=== PATIENT | female | born 1940 | race Caucasian/White ===

== ENCOUNTER 2017-09-12 14:28 | Inpatient (IN) | payer MEDICARE, OTHER ==
[2017-09-12] MEDS ORDERED: ACETAMINOPHEN 325 MG TABLET PO PRN ×2 (14:35→15:48)
--- NOTE | 2017-09-12 14:55 | HP ---
Chief Complaint - Chief Complaint Date of Service: 09/12/17 Time of Service: 14:44 Chief Complaint: Left toe worsening infection History of Present Illness: The patient is a 77-year-old female who presented to my outpatient clinic today for routine follow-up but had acute sick visit complaints of cellulitis of her left third toe. The patient states that on 09/08/2017, she stubbed her left third toe. She states that it gradually started to become more painful, swollen and red in color. She saw deposit clerk, Dr. Gallegos, on Saturday, 2016 at which time she was diagnosed with cellulitis and started on Cefadroxil 500mg PO TID X 10 days. The patient also states that she had x-rays of her toe completed and Dr. Gallegos's office. Unfortunately, I do not have these results to review but per the patient there were no fractures. The patient has been compliant with taking all doses of her prescribed antibiotic; however, her toe continues to worsen both in appearance and symptoms. - Patient's Past Medical History Patient History - Medical: Depression, Obesity Patient History - Cardiac/Respiratory: Hyperlipidemia Patient History - Surgical Procedures: Cataracts, Colonoscopy, Orthopedic - Family History Father Family History - Medical: Family History - Cardiac/Respiratory: Coronary Heart Disease Mother Family History - Medical: Family History - Cardiac/Respiratory: CHF Sister Family History - Medical: No pertinent hx Family History - Cardiac/Respiratory: Other Family History - Cancer: No pertinent family hx - Social History Smoking Status: Never smoker Alcohol Use: none Drug Use: none Review Of Systems (GEN) - Review of Systems Generalized/Overall Review: Present: Weakness, Chills, Fatigue EENTM: Present: No Symptoms Reported Respiratory: Present: No Symptoms Reported Cardiac: Present: No Symptoms Reported Abdominal: Present: No Symptoms Reported Genitourinary: Present: No Symptoms Reported Musculoskeletal: Present: Joint Pain, Back Pain, Other - left third toe pain Neurological: Present: Weakness - generalized weakness Skin: Present: Other - left third toe swollen, red and painful Endocrine: Present: No Symptoms Reported Misc: All systems neg except as marked Allergies/Adverse Reactions: Allergies Allergy/AdvReac Type Severity Reaction Status Date / Time No Known Allergies Allergy Verified 08/06/13 18:38 Home Medications: HOME MEDICATIONS RX: ALPRAZolam [Xanax] 0.5 mg PO TID PRN 03/13/13 [Last Taken 03/13/13] RX: Carbidopa/Levodopa 25/250 [Sinemet 25/250] 1 tab PO TID 03/13/13 [Last Taken Unknown] [place]-3 Fatty Acids/Fish Oil [Fish Oil 1,000 mg Capsule] 1 each PO BID 08/06/13 [Last Taken Unknown] Acetaminophen [Tylenol] 650 mg PO Q4H PRN MDD 3000mg 09/12/17 [Last Taken Unknown] Aspirin [Aspir-Low] 81 mg PO DAILY 09/12/17 [Last Taken Unknown] Atorvastatin Calcium 20 mg PO HS 09/12/17 [Last Taken Unknown] Cefadroxil [Duricef] 500 mg PO TID 09/12/17 [Last Taken Unknown] Cholecalciferol (Vitamin D3) [Vitamin D] 2,000 unit PO DAILY 09/12/17 [Last Taken Unknown] Duloxetine HCl [Cymbalta] 90 mg PO DAILY 09/12/17 [Last Taken Unknown] RX: Gabapentin 800 mg PO TID 09/12/17 [Last Taken Unknown] RX: traMADol HCL [Tramadol HCl] 50 mg PO Q4H PRN 09/12/17 [Last Taken Unknown] Sennosides [Senna Lax] 8.6 mg PO TID PRN 09/12/17 [Last Taken Unknown] Triamcinolone Acetonide [Kenalog 0.1%] 1 appl TP BID 09/12/17 [Last Taken Unknown] Exam - Exam Vital Signs: Vital Signs - Last Taken Temp 36.9 C 08/07/13 07:33 Pulse Resp BP 137/73 08/07/13 07:33 Pulse Ox Constitutional: Present: Alert, Oriented x3, Cooperative, Acute distress - Appears uncomfortable secondary to toe pain, Elderly, Obese ENT Exam: Present: moist mucous membranes Eye Exam: bilateral eye: normal inspection, EOMI Respiratory: Present: lungs clear, normal breath sounds, no respiratory distress , no accessory muscle use Cardiovascular/Chest: Present: other - Irregular rhythm (but not irregularly irregular), murmur present Abdomen: Present: soft, nontender, nondistended Extremity: Present: no calf tenderness, lower extremity edema, other - Left third toe edema, erythema, increased warmth Skin Exam: Present: other - Left third toe edema, erythema, increased warmth Neurologic: Present: alert, normal mood/affect, oriented x 3 Appearance: Present: appropriate appearance, appropriate insight, neat, no memory impairment Eye contact: Present: cooperative, good eye contact, normal speech Thoughts: Present: normal thought pattern, no apparent hallucination Assessment/Plan - Narrative Narrative: IMPRESSION & PLAN: Left 3rd Toe Cellulitis -Admit to Med-Surg, Inpatient status. Patient failed outpatient therapy. She was started on Cefadroxil by Dr. Martinez on Saturday, . -Discontinue PO Cefadroxil -Start IV Vancomycin and Zosyn -Monitor for improvement. If patient improves well, I will plan to discontinue the IV vancomycin in the near future with plans to eventually send the patient home on oral antibiotics, likely Bactrim. -If cellulitis does not improve as expected, further imaging may be necessary -Continue to monitor clinical course and adjust care plan as necessary -Blood cultures X 2 ordered -Bloodwork ordered including CBC, BMP, procalcitonin and uric acid level CHRONIC STABLE MEDICAL CONDITIONS: Peripheral Neuropathy: Continue home medications Cymbalta, gabapentin Hyperlipidemia: Continue home medications atorvastatin, fish oil Familial Tremor: Continue home carbidopa-levodopa Depression and Anxiety: Continue home medications Xanax, Cymbalta Vitamin D deficiency: Continue home vitamin D supplementation Chronic Constipation: Continue Senna-S as needed VTE ppx: Lovenox, SCDs - Assessment/Plan (1) Cellulitis of third toe of left foot Problem: Acute (2) Peripheral neuropathy Problem: Chronic (3) Peripheral neuropathic pain Problem: Chronic (4) Hyperlipidemia Problem: Chronic (5) Benign familial tremor Problem: Chronic (6) Anxiety and depression Problem: Chronic (7) Vitamin D deficiency Problem: Chronic (8) Chronic constipation Problem: Chronic
[2017-09-12 15:08] LABS: Hematocrit 40.8 % (37.0-47.0); Hemoglobin 13.4 gm/dL (12.5-16.0); Mean Cell Volume 96.2 fl (78-100); Mean Corpuscular Hemoglobin 31.6 pg (27-31); Mean Corpuscular Hgb Conc 32.8 g/dl (32-36); Mean Platelet Volume 9.5 fl (6.0-9.5); Neutrophil # 4.7 K/mm3 (1.3-6.0); Platelet Count 206 K/mm3 (150-450); Red Blood Count 4.24 M/mm3 (4.2-5.4); Red Cell Distribution Width 12.5 % (11.5-14.0); White Blood Count 6.9 K/mm3 (4.0-10.5)
[2017-09-12 15:16] LABS: Anion Gap 10.3 mmol/L (6.8-13.8); BUN/Creatinine Ratio 21.1 (9.0-21.6); Blood Urea Nitrogen 23 mg/dL (3-23); Calcium * 9.1 mg/dL (7.9-10.9); Carbon Dioxide 34.2 mmol/L (24-32.6); Chloride 103 mmol/L (97-106); Glucose * 160 mg/dL (70-110); Potassium 4.5 mmol/L (3.4-4.6); Sodium 143 mmol/L (132-142)
[2017-09-12] MEDS: PIPERACILLIN SODIUM/TAZOBACTAM 3.375 GM in DEXTROSE 5 % IN WATER 100 ML IV SCH ×4 (16:25→23:01)
[2017-09-12] MEDS: CARBIDOPA/LEVODOPA 25/250 1 TAB TABLET PO SCH (16:47)
[2017-09-12] MEDS: ENOXAPARIN SODIUM 40 MG/0.4 ML SYRG SC SCH (16:47)
[2017-09-12] MEDS: VANCOMYCIN HCL 1.25 GM in DEXTROSE 5 % IN WATER 250 ML IV SCH ×2 (16:48)
[2017-09-12] MEDS ORDERED: FLU VACC QS2017-18(6MOS UP)/PF 60 MCG/0.5 ML SYRINGE IM ONE (17:00)
[2017-09-12] MEDS: SENNOSIDES 8.6 MG TABLET PO PRN (19:02)
[2017-09-12] MEDS: SACCHAROMYCES BOULARDII 250 MG CAPSULE PO SCH (20:32)
[2017-09-12] MEDS: GABAPENTIN 400 MG CAPSULE PO SCH (20:32)
[2017-09-12] MEDS: OMEGA-3 FATTY ACIDS 1 CAP CAPSULE PO SCH (20:32)
[2017-09-12] MEDS: ROSUVASTATIN CALCIUM 10 MG TABLET PO SCH (20:33)
[2017-09-12] MEDS: TRIAMCINOLONE ACETONIDE 15 APPL TUBE TP SCH (20:34)
[2017-09-12] MEDS: ALPRAZolam 0.5 MG TABLET PO PRN (22:56)
[2017-09-13] MEDS: traMADol HCL 50 MG TABLET PO PRN ×2 (02:23→08:35)
[2017-09-13 06:12] LABS: Hematocrit 38.1 % (37.0-47.0); Hemoglobin 12.4 gm/dL (12.5-16.0); Mean Cell Volume 96.7 fl (78-100); Mean Corpuscular Hemoglobin 31.5 pg (27-31); Mean Corpuscular Hgb Conc 32.5 g/dl (32-36); Mean Platelet Volume 9.3 fl (6.0-9.5); Neutrophil # 2.8 K/mm3 (1.3-6.0); Neutrophil % 54.5 % (42-75.0); Platelet Count 190 K/mm3 (150-450); Red Blood Count 3.94 M/mm3 (4.2-5.4); Red Cell Distribution Width 12.5 % (11.5-14.0); White Blood Count 5.1 K/mm3 (4.0-10.5)
[2017-09-13 06:18] LABS: Anion Gap 10.9 mmol/L (6.8-13.8); BUN/Creatinine Ratio 17.4 (9.0-21.6); Calcium * 8.8 mg/dL (7.9-10.9); Carbon Dioxide 31.6 mmol/L (24-32.6); Estimated Creat Clear 38.5; Potassium 4.5 mmol/L (3.4-4.6)
[2017-09-13] MEDS: GABAPENTIN 400 MG CAPSULE PO SCH ×3 (06:52→20:29)
[2017-09-13] MEDS: ALPRAZolam 0.5 MG TABLET PO PRN ×3 (08:35→20:44)
[2017-09-13] MEDS: ASPIRIN 81 MG TABLET.DR PO SCH (08:37)
[2017-09-13] MEDS: PIPERACILLIN SODIUM/TAZOBACTAM 3.375 GM in DEXTROSE 5 % IN WATER 100 ML IV SCH ×4 (08:37→16:28)
[2017-09-13] MEDS: DULoxetine HCL 30 MG CAPSULE.SA PO SCH (08:37)
[2017-09-13] MEDS: TRIAMCINOLONE ACETONIDE 15 APPL TUBE TP SCH ×2 (08:38→20:29)
[2017-09-13] MEDS: SACCHAROMYCES BOULARDII 250 MG CAPSULE PO SCH ×2 (08:38→20:29)
[2017-09-13] MEDS: CHOLECALCIFEROL 1,000 UNIT CAPSULE PO SCH (08:39)
[2017-09-13] MEDS: CARBIDOPA/LEVODOPA 25/250 1 TAB TABLET PO SCH ×3 (08:39→16:28)
[2017-09-13] MEDS: OMEGA-3 FATTY ACIDS 1 CAP CAPSULE PO SCH ×3 (08:39→20:39)
--- NOTE | 2017-09-13 09:12 | PN ---
Subjective - Date and Time Seen Date: 09/13/17 Time: 09:00 Objective Objective Narrative: Patient seen and examined at bedside this AM. No acute issues overnight. Swelling and redness still present but improved from yesterday. Patient denies any new issues or concerns this AM. - Review of Systems Generalized/Overall Review: Reports: Weakness, Fatigue EENTM: Reports: No Symptoms Reported Respiratory: Reports: No Symptoms Reported Cardiac: Reports: No Symptoms Reported Abdominal: Reports: No Symptoms Reported Genitourinary Symptoms: Reports: No Symptoms Reported Musculoskeletal Complaints: Reports: Joint Pain, Back Pain, Other - left 3rd toe pain Neurological: Reports: Weakness - generalized Skin: Reports: Other - left third toe swelling and redness Endocrine: Reports: No Symptoms Reported Misc: All systems neg except as marked - Vitals Vitals: Last Vital Signs Temp 36.4 C L 09/13/17 08:15 Pulse 92 09/13/17 08:15 Resp 16 09/13/17 08:15 BP 159/84 09/13/17 08:15 Pulse Ox 97 09/13/17 08:15 - Abnormal Lab Findings Abnormal Lab Findings: Abnormal Lab Results 09/12/17 09/12/17 09/12/17 Range/Units 14:50 14:50 14:50 RBC (4.2-5.4) M/mm3 Hgb (12.5-16.0) gm/dL MCH 31.6 H (27-31) pg Eosinophils % (0.0-3.0) % Sodium 143 H (132-142) mmol/L Plasma Sodium 144 H (130-142) mmol/L Carbon Dioxide 34.2 H (24-32.6) mmol/L Est GFR (Non-Af Amer) 52 L (60-130) mL/min Random Glucose 160 H (70-110) mg/dL Procalcitonin Less than 0.05 L (0.05-0.50) ng/mL 09/13/17 09/13/17 Range/Units 06:05 06:05 RBC 3.94 L (4.2-5.4) M/mm3 Hgb 12.4 L (12.5-16.0) gm/dL MCH 31.5 H (27-31) pg Eosinophils % 4.1 H (0.0-3.0) % Sodium 143 H (132-142) mmol/L Plasma Sodium 143 H (130-142) mmol/L Carbon Dioxide (24-32.6) mmol/L Est GFR (Non-Af Amer) 52 L (60-130) mL/min Random Glucose (70-110) mg/dL Procalcitonin (0.05-0.50) ng/mL - Exam Constitutional: Present: Alert, Oriented x3, Cooperative, Well developed, Well nourished, No distress, Obese ENT Exam: Present: hearing grossly normal, moist mucous membranes Respiratory: Present: lungs clear, normal breath sounds, no respiratory distress , no accessory muscle use Cardiovascular/Chest: Present: other - Irregular rhythm (but not irregularly irregular), murmur present, edema - trace Abdomen: Present: soft, nontender, nondistended Extremity: Present: other - Left third toe edema, erythema, increased warmth. Area of redness from admission outlined and shows improved/diminished area of erythema. Skin Exam: Present: other - Left third toe edema, erythema, increased warmth. Area of redness from admission outlined and shows improved/diminished area of erythema. Neurologic: Present: alert, normal mood/affect, oriented x 3 Appearance: Present: appropriate appearance, appropriate insight, neat, no memory impairment Eye contact: Present: cooperative, good eye contact, normal speech Thoughts: Present: normal thought pattern, no apparent hallucination Assessment/Plan Plan Narrative: IMPRESSION & PLAN: Left 3rd Toe Cellulitis -Admit to Med-Surg, Inpatient status. Patient failed outpatient therapy. She was started on Cefadroxil by Dr. Martinez on Saturday, . Per patient, despite oral antibiotics the redness, swelling and pain continued to progressively get worse. -Cefadroxil discontinued on admission -Continue IV Vancomycin and Zosyn -Monitor for improvement. If patient improves well, I will plan to discontinue the IV vancomycin in the near future with plans to eventually send the patient home on oral antibiotics, likely Bactrim. -MRI ordered for further evaluation of possible osteomyelitis -Continue to monitor clinical course and adjust care plan as necessary -Blood cultures X 2 ordered on admission CHRONIC STABLE MEDICAL CONDITIONS: Peripheral Neuropathy: Continue home medications Cymbalta, gabapentin Hyperlipidemia: Continue home medications atorvastatin, fish oil Familial Tremor: Continue home carbidopa-levodopa Depression and Anxiety: Continue home medications Xanax, Cymbalta Vitamin D deficiency: Continue home vitamin D supplementation Chronic Constipation: Continue Senna-S as needed VTE ppx: Lovedarronx, SCDs Disposition: Await results of MRI. It is quite likely that the patient will remain in the hospital on IV antibiotics through the weekend. - Problems/Diagnosis (1) Cellulitis of third toe of left foot Problem: Acute (2) Peripheral neuropathy Problem: Chronic (3) Peripheral neuropathic pain Problem: Chronic (4) Hyperlipidemia Problem: Chronic (5) Benign familial tremor Problem: Chronic (6) Anxiety and depression Problem: Chronic (7) Vitamin D deficiency Problem: Chronic (8) Chronic constipation Problem: Chronic
--- NOTE | 2017-09-13 15:39 | CONS ---
- Reason for consultation (1) Cellulitis of third toe of left foot Date of Service: 09/13/17 HPI - General Date of Service: 09/13/17 Narrative: Pt evaluated at bedside resting. States that she has been having ongoing troubles with her left 3rd toe for some time now. States that Dr. Gallegos did try to aspirate a mass to the plantar surface of her toe approximately 1 month ago without success. She then stubbed this toe on Saturday and presented back to his office for follow up. Xrays were completed and she was told negative for fracture. She was placed on oral ABX with diagnosis of cellulitis of the toe. She then presented to her PCP yesterday for follow up care and worsening of the redness and swelling in her toe, now extending to the dorsum of the foot. She was admitted for IV ABX therapy. Repeat xray shows fracture of the distal phalanx of the 3rd toe, MRI with some concern for osteomyelitis. Pt denies any draining sores to this toe. Uric acid level was obtained, high end of normal. I was consulted for surgical evaluation. Source: patient Exam Limitations: no limitations - History of Present Illness Allergies/Adverse Reactions: Allergies No Known Allergies Allergy (Verified 08/06/13 18:38) Home Medications: Home Medications Medication Instructions Recorded Last Taken ALPRAZolam [Xanax] 0.5 mg PO TID PRN 03/13/13 03/13/13 Carbidopa/Levodopa 25/250 [Sinemet 1 tab PO TID 03/13/13 Unknown 25/250] [place]-3 Fatty Acids/Fish Oil [Fish 1 each PO BID 08/06/13 Unknown Oil 1,000 mg Capsule] Acetaminophen [Tylenol] 650 mg PO Q4H PRN MDD 3000mg 09/12/17 Unknown Aspirin [Aspir-Low] 81 mg PO DAILY 09/12/17 Unknown Atorvastatin Calcium 20 mg PO HS 09/12/17 Unknown Cefadroxil [Duricef] 500 mg PO TID 09/12/17 Unknown Cholecalciferol (Vitamin D3) 2,000 unit PO DAILY 09/12/17 Unknown [Vitamin D] Duloxetine HCl [Cymbalta] 90 mg PO DAILY 09/12/17 Unknown Gabapentin 800 mg PO TID 09/12/17 Unknown Sennosides [Senna Lax] 8.6 mg PO TID PRN 09/12/17 Unknown Triamcinolone Acetonide [Kenalog 1 appl TP BID 09/12/17 Unknown 0.1%] traMADol HCL [Tramadol HCl] 50 mg PO Q4H PRN 09/12/17 Unknown - Patient's Past Medical History Patient History - Medical: Depression, Obesity Patient History - Cardiac/Respiratory: Hyperlipidemia Patient History - Cancer: No Hx of Cancer Patient History - Surgical Procedures: Cataracts, Colonoscopy, Orthopedic Patient History - Other: None - Family History Father Family History - Medical: Family History - Cardiac/Respiratory: Coronary Heart Disease Mother Family History - Medical: Family History - Cardiac/Respiratory: CHF Sister Family History - Medical: No pertinent hx Family History - Cardiac/Respiratory: Other Family History - Cancer: No pertinent family hx - Social History Living Situations: spouse Abuse History: No History of abuse Psych History: Hx of Anxiety, Hx of Depression, Current tx/ever been on anti- depressants or anti-anxiety meds Smoking Status: Never smoker Have you smoked in the past 12 months: No Patient requests Smoking Cessation Consult: No Initiate information on Smoking Cessation: No Alcohol Use: none Drug Use: none Procedures AFTER-CATAR DISCISSION (02/20/11) CATARAC PHACOEMULS/ASPIR (08/24/08) COLONOSCOPY (07/12/09) EXCIS KNEE SEMILUN CARTL (03/27/13) INSERT LENS AT CATAR EXT (08/24/08) KNEE ARTHROSCOPY (03/27/13) KNEE SYNOVECTOMY (03/27/13) SPINAL TAP (04/21/09) Medications - Medications Current Medications: Current Medications Acetaminophen (Tylenol) 650 mg PO Q4H PRN PRN Reason: Pain Stop: 10/12/17 15:49 Last Admin: 09/12/17 20:28 Dose: 650 mg Alprazolam (Xanax) 0.5 mg PO TID PRN PRN Reason: Anxiety Stop: 10/12/17 15:49 Last Admin: 09/13/17 08:35 Dose: 0.5 mg Aspirin (Aspirin Enteric Coated) 81 mg PO DAILY LYNETTE Stop: 10/13/17 09:01 Last Admin: 09/13/17 08:37 Dose: 81 mg Carbidopa/Levodopa (Sinemet 25/250) 1 tab PO TID LYNETTE Stop: 10/12/17 17:01 Last Admin: 09/13/17 13:38 Dose: 1 tab Cholecalciferol (Vitamin D) 2,000 unit PO DAILY LYNETTE Stop: 10/13/17 09:01 Last Admin: 09/13/17 08:39 Dose: 2,000 unit Duloxetine HCl (Cymbalta) 90 mg PO DAILY LYNETTE Stop: 10/13/17 09:01 Last Admin: 09/13/17 08:37 Dose: 90 mg Enoxaparin Sodium (Lovenox) 40 mg SC Q24H LYNETTE Stop: 10/12/17 17:01 Last Admin: 09/12/17 16:47 Dose: 40 mg Gabapentin (Neurontin) 800 mg PO TID@0700,1400,2100 LYNETTE Stop: 10/12/17 21:01 Last Admin: 09/13/17 13:38 Dose: 800 mg Piperacillin Sod/Tazobactam (Sod 3.375 gm/ Dextrose/Water) 100 mls @ 25 mls/hr IV Q8H LYNETTE PRN Reason: Protocol Stop: 10/12/17 16:01 Last Admin: 09/13/17 08:37 Dose: 25 mls/hr Vancomycin HCl 1.25 gm/ (Dextrose/Water) 250 mls @ 140 mls/hr IV Q24H LYNETTE PRN Reason: Protocol Stop: 10/12/17 17:01 Last Admin: 09/12/17 16:48 Dose: 140 mls/hr Pjcpo-1-Chld Ethyl Esters ([place]-3 1000 Mg) 1 cap PO BID LYNETTE Stop: 10/12/17 21:01 Last Admin: 09/13/17 08:39 Dose: 1 cap Rosuvastatin Calcium (Crestor) 10 mg PO HS LYNETTE Stop: 10/12/17 21:01 Last Admin: 09/12/17 20:33 Dose: 10 mg Saccharomyces Boulardii (Florastor) 250 mg PO BID LYNETTE Stop: 10/12/17 21:01 Last Admin: 09/13/17 08:38 Dose: 250 mg Senna (Senokot) 8.6 mg PO TID PRN PRN Reason: Constipation Stop: 10/12/17 15:49 Last Admin: 09/12/17 19:02 Dose: 8.6 mg Tramadol HCl (Ultram) 50 mg PO Q4H PRN PRN Reason: Pain Stop: 10/12/17 15:49 Last Admin: 09/13/17 08:35 Dose: 50 mg Triamcinolone Acetonide (Kenalog 0.1%) 1 appl TP BID LYNETTE Stop: 10/12/17 21:01 Last Admin: 09/13/17 08:38 Dose: 1 appl Review of Systems - Review of Systems Musculoskeletal: Present: Other - left 3rd toe pain Skin: Present: Other - redness and swelling left 3rd toe Physical Examination - Exam Vital Signs: Vital Signs - Last Taken Temp 36.4 C L 09/13/17 09:00 Pulse 92 09/13/17 09:00 Resp 16 09/13/17 09:00 BP 159/84 09/13/17 09:00 Pulse Ox 97 09/13/17 09:00 O2 Oxygen Delivery Method Room Air Constitutional: Present: Alert, Oriented x3, Cooperative, No distress Peripheral Pulses: dorsalis-pedis (L): 2+ Extremity: Present: other - left 3rd toe pain Skin Exam: Present: other - Erythema to left 3rd toe extending to the base of the toe - improved per previous demarcation of level of erythema. Toe is significantly swollen and warm to touch. Pt has some tenderness on palpation to the toe. White discoloration among erythema at the plantar medial toe and dorsal PIPJ region of the toe, consider tophi from gout attack. No breaks in the skin, no active drainage. - Results and Findings: Lab/Microbiology results last 24 hrs: Abnormal/Pending Laboratory Last 24 HRS 09/13/17 09/13/17 09/12/17 06:05 06:05 14:50 RBC 3.94 L Hgb 12.4 L MCH 31.5 H Eosinophils % 4.1 H Sodium 143 H Plasma Sodium 143 H Est GFR (Non-Af Amer) 52 L Procalcitonin Less than 0.05 L Culture 09/12/17 14:50 Blood Culture - Preliminary Blood NO GROWTH 24 HOURS - Assessments/Findings (1) Cellulitis of third toe of left foot Diagnosis(s): Reviewed labs, xray, MRI. I am not completely convinced pt has osteomyelitis as she has no ulcerations in her skin. MRI findings could be secondary to acute fracture of the toe following stubbing injury 5 days ago. Uric acid is high end of normal. I am more suspicious of an acute gout attack at this time. Would like to continue IV ABX through the weekend and re-evaluate. Discussed with pt potential I&D of the toe and can remove the fracture fragments and send to be evaluated for infection as bone culture is the gold standard in diagnosing. I do not believe pt requires amputation of any kind at this time. Pt is in agreement with this plan. Will continue to follow during her stay and plan surgical care accordingly. Problem: Acute
[2017-09-13] MEDS: ENOXAPARIN SODIUM 40 MG/0.4 ML SYRG SC SCH (16:28)
[2017-09-13] MEDS: VANCOMYCIN HCL 1.25 GM in DEXTROSE 5 % IN WATER 250 ML IV SCH ×2 (16:38)
[2017-09-13] MEDS: ROSUVASTATIN CALCIUM 10 MG TABLET PO SCH (20:29)
[2017-09-13] MEDS: SENNOSIDES 8.6 MG TABLET PO PRN (20:44)
[2017-09-13] MEDS ORDERED: POLYVINYL ALCOHOL 150 DROP BTL EACHEYE PRN (20:58)
[2017-09-14] MEDS: PIPERACILLIN SODIUM/TAZOBACTAM 3.375 GM in DEXTROSE 5 % IN WATER 100 ML IV SCH ×8 (00:13→23:49)
[2017-09-14] MEDS: GABAPENTIN 400 MG CAPSULE PO SCH ×3 (07:05→21:00)
[2017-09-14] MEDS: ALPRAZolam 0.5 MG TABLET PO PRN ×2 (07:08→22:17)
[2017-09-14] MEDS: SENNOSIDES/DOCUSATE SODIUM 1 TAB TABLET PO PRN ×2 (08:38→13:33)
[2017-09-14] MEDS: ASPIRIN 81 MG TABLET.DR PO SCH (08:39)
[2017-09-14] MEDS: CARBIDOPA/LEVODOPA 25/250 1 TAB TABLET PO SCH ×3 (08:39→16:49)
[2017-09-14] MEDS: DULoxetine HCL 30 MG CAPSULE.SA PO SCH (08:39)
[2017-09-14] MEDS: OMEGA-3 FATTY ACIDS 1 CAP CAPSULE PO SCH ×2 (08:39→21:01)
[2017-09-14] MEDS: SACCHAROMYCES BOULARDII 250 MG CAPSULE PO SCH ×2 (08:39→21:01)
[2017-09-14] MEDS: CHOLECALCIFEROL 1,000 UNIT CAPSULE PO SCH (08:39)
[2017-09-14] MEDS: TRIAMCINOLONE ACETONIDE 15 APPL TUBE TP SCH ×2 (08:40→21:02)
--- NOTE | 2017-09-14 09:27 | PN ---
Subjective - Date and Time Seen Date: 09/14/17 Time: 08:40 Subjective Narrative: Patient seen and examined at bedside this AM. No acute issues overnight. Swelling and redness still present but continues to improve. Patient denies any new issues or concerns this AM. Objective Objective Narrative: Patient seen and examined at bedside this AM. No acute issues overnight. Swelling and redness still present but improved from yesterday. Patient denies any new issues or concerns this AM. - Review of Systems Generalized/Overall Review: Reports: Weakness, Fatigue EENTM: Reports: No Symptoms Reported Respiratory: Reports: No Symptoms Reported Cardiac: Reports: No Symptoms Reported Abdominal: Reports: No Symptoms Reported Genitourinary Symptoms: Reports: No Symptoms Reported Musculoskeletal Complaints: Reports: Joint Pain, Back Pain, Other - Left 3rd toe pain improving Neurological: Reports: Weakness - generalized weakness Skin: Reports: Other - Left 3rd toe swelling and redness Endocrine: Reports: No Symptoms Reported Misc: All systems neg except as marked - Vitals Vitals: Last Vital Signs Temp 36.7 C 09/14/17 06:48 Pulse 82 09/14/17 06:48 Resp 18 09/14/17 06:48 BP 186/77 09/14/17 06:48 Pulse Ox 96 09/14/17 06:48 - Exam Constitutional: Present: Alert, Oriented x3, Cooperative, Well developed, Well nourished, No distress, Elderly, Obese ENT Exam: Present: hearing grossly normal, moist mucous membranes Respiratory: Present: lungs clear, normal breath sounds, no respiratory distress , no accessory muscle use Cardiovascular/Chest: Present: other - Irregular rhythm (but not irregularly irregular), regular rate, edema - trace edema in bilateral lower extremities Abdomen: Present: soft, nontender, nondistended Extremity: Present: other - Left third toe edema, erythema, increased warmth. Area or redness outlined on admission and shows improved/diminished area of erythema. Skin Exam: Present: other - Left third toe edema, erythema, increased warmth. Area or redness outlined on admission and shows improved/diminished area of erythema. Neurologic: Present: alert, normal mood/affect, oriented x 3 Appearance: Present: appropriate appearance, appropriate insight, neat, no memory impairment Eye contact: Present: cooperative, good eye contact, normal speech Thoughts: Present: normal thought pattern, no apparent hallucination Assessment/Plan Plan Narrative: IMPRESSION & PLAN: Left 3rd Toe Cellulitis -Admit to Med-Surg, Inpatient status. Patient failed outpatient therapy. She was started on Cefadroxil by Dr. Martinez on Saturday, . Per patient, despite oral antibiotics the redness, swelling and pain continued to progressively get worse. -Cefadroxil discontinued on admission -Continue IV Vancomycin and Zosyn -Patient had an x-ray taken in Dr. Gallegos's office on 09/09/2017 and per patient and Dr. Gallegos, there were no acute fractures. Unfortunately, I do not have these images or report for review. Thus, I repeated x-rays on 2016 which showed: Diffuse soft tissue swelling involving the third toe, dorsal displacement of Bone fragments which are anterior to the proximal aspect of the distal phalanx. This may reflect a displaced fracture, but bony destruction/ osteomalacia cannot be totally excluded. -Left lower extremity non-joint MRI with and without contrast on 09/13/2017 showed: Dorsally displaced bone fragment, which I believe originates from the proximal medial aspect of the distal phalanx of the third toe. There is abnormal signal within the distal phalanx and middle phalanx of the third toe, concerning for osteomyelitis. -Blood cultures X 2 ordered on admission preliminary NGTD -[employer], Dr. Ordoñez, consulted. Appreciate her input and assistance in the care of this patient. Plan is to continue IV antibiotics through the weekend and reassess on Saturday to determine if the patient needs an I&D and/or removal of bone fragments to send for culture to rule out osteomyelitis. Possible Gout -Patient denies ever having a history of gout in the past. However, exam is concerning for a possible acute gout flare with visible tophi under the skin. -Uric acid on admission 7.0. However, in an acute gout flare it is quite common to have a normal uric acid level. -Continue above treatment plan but I will also start the patient on treatment for gout with colchicine 0.6mg PO BID CHRONIC STABLE MEDICAL CONDITIONS: Peripheral Neuropathy: Continue home medications Cymbalta, gabapentin Hyperlipidemia: Continue home medications atorvastatin, fish oil Familial Tremor: Continue home carbidopa-levodopa Depression and Anxiety: Continue home medications Xanax, Cymbalta Vitamin D deficiency: Continue home vitamin D supplementation Chronic Constipation: Continue Senna-S as needed VTE ppx: Lovenox, SCDs Disposition: Continue IV antibiotics through the weekend with plans for I&D and possible removal of the fracture fragments by Dr. Ordoñez on Saturday. - Problems/Diagnosis (1) Cellulitis of third toe of left foot Problem: Acute (2) Acute gout involving toe of left foot Problem: Suspected (3) Peripheral neuropathy Problem: Chronic (4) Peripheral neuropathic pain Problem: Chronic (5) Hyperlipidemia Problem: Chronic (6) Benign familial tremor Problem: Chronic (7) Anxiety and depression Problem: Chronic (8) Vitamin D deficiency Problem: Chronic (9) Chronic constipation Problem: Chronic
[2017-09-14] MEDS: COLCHICINE 0.6 MG TABLET PO SCH ×3 (10:22→16:48)
[2017-09-14] MEDS ORDERED: BISACODYL 10 MG SUPP.RECT RC PRN (14:33)
[2017-09-14] MEDS: ENOXAPARIN SODIUM 40 MG/0.4 ML SYRG SC SCH (16:49)
[2017-09-14] MEDS: VANCOMYCIN HCL 1.25 GM in DEXTROSE 5 % IN WATER 250 ML IV SCH ×2 (16:49)
[2017-09-14] MEDS: traMADol HCL 50 MG TABLET PO PRN ×2 (16:52→22:01)
[2017-09-14] MEDS: ROSUVASTATIN CALCIUM 10 MG TABLET PO SCH (21:02)
[2017-09-15 06:08] LABS: Hematocrit 37.3 % (37.0-47.0); Mean Cell Volume 96.9 fl (78-100); Mean Corpuscular Hemoglobin 31.2 pg (27-31); Mean Corpuscular Hgb Conc 32.2 g/dl (32-36); Mean Platelet Volume 9.9 fl (6.0-9.5); Neutrophil # 2.9 K/mm3 (1.3-6.0); Neutrophil % 56.4 % (42-75.0); Platelet Count 170 K/mm3 (150-450); Red Blood Count 3.85 M/mm3 (4.2-5.4); Red Cell Distribution Width 12.6 % (11.5-14.0); White Blood Count 5.1 K/mm3 (4.0-10.5)
[2017-09-15 06:15] LABS: Anion Gap 10.1 mmol/L (6.8-13.8); BUN/Creatinine Ratio 17.7 (9.0-21.6); Calcium * 8.9 mg/dL (7.9-10.9); Carbon Dioxide 31.3 mmol/L (24-32.6); Estimated Creat Clear 37.1; Potassium 4.4 mmol/L (3.4-4.6)
[2017-09-15] MEDS: PIPERACILLIN SODIUM/TAZOBACTAM 3.375 GM in DEXTROSE 5 % IN WATER 100 ML IV SCH ×6 (07:31→23:42)
[2017-09-15] MEDS: GABAPENTIN 400 MG CAPSULE PO SCH ×3 (07:32→21:20)
[2017-09-15] MEDS: DULoxetine HCL 30 MG CAPSULE.SA PO SCH (08:06)
[2017-09-15] MEDS: OMEGA-3 FATTY ACIDS 1 CAP CAPSULE PO SCH ×2 (08:06→21:21)
[2017-09-15] MEDS: COLCHICINE 0.6 MG TABLET PO SCH (08:06)
[2017-09-15] MEDS: SACCHAROMYCES BOULARDII 250 MG CAPSULE PO SCH ×2 (08:06→21:19)
[2017-09-15] MEDS: CARBIDOPA/LEVODOPA 25/250 1 TAB TABLET PO SCH ×3 (08:06→16:44)
[2017-09-15] MEDS: CHOLECALCIFEROL 1,000 UNIT CAPSULE PO SCH (08:07)
[2017-09-15] MEDS: ASPIRIN 81 MG TABLET.DR PO SCH (08:07)
[2017-09-15] MEDS: POLYETHYLENE GLYCOL 3350 119 GM BTL PO SCH (08:07)
[2017-09-15] MEDS: TRIAMCINOLONE ACETONIDE 15 APPL TUBE TP SCH ×2 (08:08→21:20)
[2017-09-15] MEDS: ALPRAZolam 0.5 MG TABLET PO PRN ×2 (08:10→16:44)
--- NOTE | 2017-09-15 10:17 | PN ---
Subjective - Date and Time Seen Date: 09/15/17 Time: 10:08 Subjective Narrative: Patient seen and examined at bedside this AM. No acute issues overnight. Swelling and redness still present and appears about the same as yesterday. Patient states she has some right ear pain. Objective - Review of Systems Generalized/Overall Review: Reports: Weakness - generalized, Fatigue EENTM: Reports: Ear Pain - right Respiratory: Reports: No Symptoms Reported Cardiac: Reports: No Symptoms Reported Abdominal: Reports: No Symptoms Reported Genitourinary Symptoms: Reports: No Symptoms Reported Musculoskeletal Complaints: Reports: Joint Pain, Back Pain, Other - left 3rd toe pain which is improving and well controlled at the time of my exam Neurological: Reports: Weakness - generalized Skin: Reports: Other - left 3rd toe swelling and redness Endocrine: Reports: No Symptoms Reported Misc: All systems neg except as marked - Vitals Vitals: Last Vital Signs Temp 36.9 C 09/15/17 07:57 Pulse 83 09/15/17 07:57 Resp 18 09/15/17 07:57 BP 156/87 09/15/17 07:57 Pulse Ox 97 09/15/17 07:57 - Abnormal Lab Findings Abnormal Lab Findings: Abnormal Lab Results 09/15/17 09/15/17 Range/Units 05:30 05:30 RBC 3.85 L (4.2-5.4) M/mm3 Hgb 12.0 L (12.5-16.0) gm/dL MCH 31.2 H (27-31) pg MPV 9.9 H (6.0-9.5) fl Monocytes % 10.5 H (0.0-9) % Eosinophils % 4.7 H (0.0-3.0) % Lymphocytes # 1.4 L (1.5-3.5) k/mm3 Est GFR (Non-Af Amer) 50 L (60-130) mL/min - Exam Constitutional: Present: Alert, Oriented x3, Cooperative, Well developed, Well nourished, No distress, Elderly, Obese ENT Exam: Present: hearing grossly normal, moist mucous membranes, other - right ear canal with scab/dried blood but otherwise normal appearance Respiratory: Present: lungs clear, normal breath sounds, no respiratory distress , no accessory muscle use Cardiovascular/Chest: Present: other - Irregular rhythm, normal rate, edema - trace Abdomen: Present: soft, nontender, nondistended Extremity: Present: other - Left third toe edema, erythema, increased warmth stable from yesterday Skin Exam: Present: other - Left third toe edema, erythema, increased warmth stable from yesterday Neurologic: Present: alert, normal mood/affect, oriented x 3 Appearance: Present: appropriate appearance, appropriate insight, neat, no memory impairment Eye contact: Present: cooperative, good eye contact, normal speech Thoughts: Present: normal thought pattern, no apparent hallucination Assessment/Plan Plan Narrative: IMPRESSION & PLAN: Left 3rd Toe Cellulitis -Admit to Med-Surg, Inpatient status. Patient failed outpatient therapy. She was started on Cefadroxil by Dr. Martinez on Saturday, . Per patient, despite oral antibiotics the redness, swelling and pain continued to progressively get worse. -Cefadroxil discontinued on admission -Continue IV Vancomycin and Zosyn -Patient had an x-ray taken in Dr. Gallegos's office on 09/09/2017 and per patient and Dr. Gallegos, there were no acute fractures. Unfortunately, I do not have these images or report for review. Thus, I repeated x-rays on 2016 which showed: Diffuse soft tissue swelling involving the third toe, dorsal displacement of Bone fragments which are anterior to the proximal aspect of the distal phalanx. This may reflect a displaced fracture, but bony destruction/ osteomalacia cannot be totally excluded. -Left lower extremity non-joint MRI with and without contrast on 09/13/2017 showed: Dorsally displaced bone fragment, which I believe originates from the proximal medial aspect of the distal phalanx of the third toe. There is abnormal signal within the distal phalanx and middle phalanx of the third toe, concerning for osteomyelitis. -Blood cultures X 2 ordered on admission preliminary NGTD -Registered Private Duty Nurse, Dr. Ordoñez, consulted. Appreciate her input and assistance in the care of this patient. Plan is to continue IV antibiotics through the and reassess on Saturday to determine if the patient needs an I&D and/or removal of bone fragments to send for culture to rule out osteomyelitis. Possible Gout -Patient denies ever having a history of gout in the past. However, exam is concerning for a possible acute gout flare with visible tophi under the skin. -Uric acid on admission 7.0. However, in an acute gout flare it is quite common to have a normal uric acid level. -Patient given 1.8mg of colchicine on 09/14/2017 (0.6mg TID) and now is on 0.6mg PO daily CHRONIC STABLE MEDICAL CONDITIONS: Peripheral Neuropathy: Continue home medications Cymbalta, gabapentin Hyperlipidemia: Continue home medications atorvastatin, fish oil Familial Tremor: Continue home carbidopa-levodopa Depression and Anxiety: Continue home medications Xanax, Cymbalta Vitamin D deficiency: Continue home vitamin D supplementation Chronic Constipation: Continue Senna-S as needed VTE ppx: Lovenox, SCDs. Hold AM lovenox for planned procedure. Disposition: Continue IV antibiotics through the weekend with plans for I&D and possible removal of the fracture fragments by Dr. Ordoñez on Saturday (09/15/2017). - Problems/Diagnosis (1) Cellulitis of third toe of left foot Problem: Acute (2) Acute gout involving toe of left foot Problem: Suspected (3) Peripheral neuropathy Problem: Chronic (4) Peripheral neuropathic pain Problem: Chronic (5) Hyperlipidemia Problem: Chronic (6) Benign familial tremor Problem: Chronic (7) Anxiety and depression Problem: Chronic (8) Vitamin D deficiency Problem: Chronic (9) Chronic constipation Problem: Chronic
[2017-09-15] MEDS ORDERED: VANCOMYCIN HCL LEVEL XX ONE (16:30)
[2017-09-15] MEDS: VANCOMYCIN HCL 1.25 GM in DEXTROSE 5 % IN WATER 250 ML IV SCH ×2 (18:11)
[2017-09-15] MEDS: ROSUVASTATIN CALCIUM 10 MG TABLET PO SCH (21:19)
[2017-09-16] MEDS: GABAPENTIN 400 MG CAPSULE PO SCH ×3 (06:38→22:39)
[2017-09-16] MEDS: ASPIRIN 81 MG TABLET.DR PO SCH (08:19)
[2017-09-16] MEDS: ALPRAZolam 0.5 MG TABLET PO PRN ×2 (08:19→23:19)
[2017-09-16] MEDS: COLCHICINE 0.6 MG TABLET PO SCH (08:19)
[2017-09-16] MEDS: SACCHAROMYCES BOULARDII 250 MG CAPSULE PO SCH ×2 (08:20→22:39)
[2017-09-16] MEDS: TRIAMCINOLONE ACETONIDE 15 APPL TUBE TP SCH ×2 (08:20→22:39)
[2017-09-16] MEDS: DULoxetine HCL 30 MG CAPSULE.SA PO SCH (08:20)
[2017-09-16] MEDS: OMEGA-3 FATTY ACIDS 1 CAP CAPSULE PO SCH ×2 (08:21→22:40)
[2017-09-16] MEDS: CHOLECALCIFEROL 1,000 UNIT CAPSULE PO SCH (08:21)
[2017-09-16] MEDS: CARBIDOPA/LEVODOPA 25/250 1 TAB TABLET PO SCH ×3 (08:21→16:31)
[2017-09-16] MEDS: PIPERACILLIN SODIUM/TAZOBACTAM 3.375 GM in DEXTROSE 5 % IN WATER 100 ML IV SCH ×6 (08:25→23:03)
[2017-09-16] MEDS: POLYETHYLENE GLYCOL 3350 119 GM BTL PO SCH (10:27)
--- NOTE | 2017-09-16 12:05 | PN ---
Subjective - Date and Time Seen Date: 09/16/17 Time: 11:59 Subjective Narrative: Pt evaluated at bedside. States that she feels her toe has improved, however continues to have some redness and swelling. Is curious about surgery as she has been placed NPO for possible I&D today. Was placed on colchecine over the weekend for suspected gout attack. Objective - Review of Systems Skin: Reports: Other - redness and swelling of left 3rd toe. - Vitals Vitals: Last Vital Signs Temp 35.8 C L 09/16/17 10:31 Pulse 86 09/16/17 10:31 Resp 18 09/16/17 10:31 BP 149/75 09/16/17 10:31 Pulse Ox 99 09/16/17 10:31 - Exam Constitutional: Present: Alert, Oriented x3, Cooperative, No distress Skin Exam: Present: other - Left 3rd toe still with redness and swelling, however has improved and now more localized to the mid-distal toe. Still with appearance of tophaceous deposits subcutaneously. Toe no longer warm to touch. Assessment/Plan - Problems/Diagnosis (1) Cellulitis of third toe of left foot Problem: Acute Narrative: Improving with IV ABX. Will continue at this time. (2) Acute gout involving toe of left foot Problem: Suspected Qualifiers: Gout etiology: unspecified cause Qualified Code(s): M10.9 - Gout, unspecified Narrative: Discussed with pt at bedside surgical care to include incision and debridement of the toe with removal of infected tissue and bone. Discussed risks and benefits of the procedure, no guarantees given or implied. Pt is in agreement with this plan. She has been NPO so will plan to go to OR this afternoon for procedure. Consent to be obtained and signed for aforementioned procedure. Potential d/c home tomorrow pending surgical findings.
--- NOTE | 2017-09-16 13:11 | PN ---
Subjective - Date and Time Seen Date: 09/16/17 Time: 08:30 Subjective Narrative: Patient seen and examined at bedside this AM. No acute issues overnight. Swelling and redness still present and appears about the same as yesterday. Patient denies any new issues or concerns. Objective - Review of Systems Generalized/Overall Review: Reports: Weakness - generalized, Fatigue EENTM: Reports: No Symptoms Reported Respiratory: Reports: No Symptoms Reported Cardiac: Reports: No Symptoms Reported Abdominal: Reports: No Symptoms Reported Genitourinary Symptoms: Reports: No Symptoms Reported Musculoskeletal Complaints: Reports: Joint Pain, Back Pain, Other - left 3rd toe pain Neurological: Reports: Weakness - generalized Skin: Reports: Other - left 3rd toe swelling and redness Endocrine: Reports: No Symptoms Reported Misc: All systems neg except as marked - Vitals Vitals: Last Vital Signs Temp 35.8 C L 09/16/17 10:31 Pulse 86 09/16/17 10:31 Resp 18 09/16/17 10:31 BP 149/75 09/16/17 10:31 Pulse Ox 99 09/16/17 10:31 - Exam Constitutional: Present: Alert, Oriented x3, Cooperative, Well developed, Well nourished, No distress, Elderly, Obese ENT Exam: Present: hearing grossly normal, moist mucous membranes Respiratory: Present: lungs clear, normal breath sounds, no respiratory distress , no accessory muscle use Cardiovascular/Chest: Present: no edema, other - irregular rhythm, normal rate Abdomen: Present: soft, nontender, nondistended Extremity: Present: other - left 3rd toe edema, erythema Skin Exam: Present: other - left 3rd toe erythema and edema Neurologic: Present: alert, normal mood/affect, oriented x 3 Appearance: Present: appropriate appearance, appropriate insight, neat, no memory impairment Eye contact: Present: cooperative, good eye contact, normal speech Thoughts: Present: normal thought pattern, no apparent hallucination Assessment/Plan Plan Narrative: IMPRESSION & PLAN: Left 3rd Toe Cellulitis with displaced fractures of the distal phalanx -Admit to Med-Surg, Inpatient status. Patient failed outpatient therapy. She was started on Cefadroxil by Dr. Martinez on Saturday, . Per patient, despite oral antibiotics the redness, swelling and pain continued to progressively get worse. -Cefadroxil discontinued on admission -Continue IV Vancomycin and Zosyn for now with plans to likely transition to PO Bactrim after surgery today. -Patient had an x-ray taken in Dr. Gallegos's office on 09/09/2017 and per patient and Dr. Gallegos, there were no acute fractures. Unfortunately, I do not have these images or report for review. Thus, I repeated x-rays on 2016 which showed: Diffuse soft tissue swelling involving the third toe, dorsal displacement of Bone fragments which are anterior to the proximal aspect of the distal phalanx. This may reflect a displaced fracture, but bony destruction/ osteomalacia cannot be totally excluded. -Left lower extremity non-joint MRI with and without contrast on 09/13/2017 showed: Dorsally displaced bone fragment, which I believe originates from the proximal medial aspect of the distal phalanx of the third toe. There is abnormal signal within the distal phalanx and middle phalanx of the third toe, concerning for osteomyelitis. -Blood cultures X 2 ordered on admission preliminary NGTD -Landscape Contractor, Dr. Ordoñez, consulted. Appreciate her input and assistance in the care of this patient. Plan is for the patient to go to the OR today (2016) @ 1600 for an I&D with removal of bone fragments to send for culture to rule out osteomyelitis. Possible Gout -Patient denies ever having a history of gout in the past. However, exam is concerning for a possible acute gout flare with visible tophi under the skin. -Uric acid on admission 7.0. However, in an acute gout flare it is quite common to have a normal uric acid level. -Patient given 1.8mg of colchicine on 09/14/2017 (0.6mg TID) and now is on 0.6mg PO daily CHRONIC STABLE MEDICAL CONDITIONS: Peripheral Neuropathy: Continue home medications Cymbalta, gabapentin Hyperlipidemia: Continue home medications atorvastatin, fish oil Familial Tremor: Continue home carbidopa-levodopa Depression and Anxiety: Continue home medications Xanax, Cymbalta Vitamin D deficiency: Continue home vitamin D supplementation Chronic Constipation: Continue Senna-S as needed VTE ppx: Lovenox, SCDs. Hold AM lovenox for planned procedure today. Disposition: I&D with removal of the fracture fragments by Dr. Ordoñez today, Saturday (09/15/2017). Plan for discharge home tomorrow (09/17/2017). - Problems/Diagnosis (1) Cellulitis of third toe of left foot Problem: Acute (2) Fracture of third toe, left, closed Problem: Acute (3) Acute gout involving toe of left foot Problem: Suspected Qualifiers: Gout etiology: unspecified cause Qualified Code(s): M10.9 - Gout, unspecified (4) Peripheral neuropathy Problem: Chronic (5) Peripheral neuropathic pain Problem: Chronic (6) Hyperlipidemia Problem: Chronic (7) Benign familial tremor Problem: Chronic (8) Anxiety and depression Problem: Chronic (9) Vitamin D deficiency Problem: Chronic (10) Chronic constipation Problem: Chronic
[2017-09-16] MEDS ORDERED: VANCOMYCIN HCL 1.5 GM in DEXTROSE 5 % IN WATER 500 ML IV SCH ×2 (17:00)
[2017-09-16] MEDS ORDERED: RINGER'S SOLUTION,LACTATED 1,000 ML IV ONE (18:05)
[2017-09-16] MEDS ORDERED: LIDOCAINE HCL 50 ML VIAL IJ ONE (18:20)
[2017-09-16] MEDS ORDERED: BUPIVACAINE HCL 50 ML VIAL IJ ONE (18:20)
[2017-09-16] MEDS: ROSUVASTATIN CALCIUM 10 MG TABLET PO SCH (22:39)
[2017-09-16] MEDS: traMADol HCL 50 MG TABLET PO PRN (23:17)
[2017-09-17] MEDS: HYDROcodone/ACETAMINOPHEN 1 EACH TABLET PO PRN ×2 (00:59→05:24)
[2017-09-17] MEDS: ALPRAZolam 0.5 MG TABLET PO PRN ×2 (03:28→09:06)
[2017-09-17] MEDS: traMADol HCL 50 MG TABLET PO PRN ×2 (03:28→08:54)
[2017-09-17] MEDS: GABAPENTIN 400 MG CAPSULE PO SCH ×3 (06:41→21:32)
[2017-09-17] MEDS: PIPERACILLIN SODIUM/TAZOBACTAM 3.375 GM in DEXTROSE 5 % IN WATER 100 ML IV SCH ×2 (08:55)
[2017-09-17] MEDS: ASPIRIN 81 MG TABLET.DR PO SCH (08:58)
[2017-09-17] MEDS: COLCHICINE 0.6 MG TABLET PO SCH (08:58)
[2017-09-17] MEDS: SACCHAROMYCES BOULARDII 250 MG CAPSULE PO SCH ×2 (08:59→21:33)
[2017-09-17] MEDS: DULoxetine HCL 30 MG CAPSULE.SA PO SCH (08:59)
[2017-09-17] MEDS: CHOLECALCIFEROL 1,000 UNIT CAPSULE PO SCH (09:00)
[2017-09-17] MEDS: OMEGA-3 FATTY ACIDS 1 CAP CAPSULE PO SCH ×2 (09:00→21:33)
[2017-09-17] MEDS: CARBIDOPA/LEVODOPA 25/250 1 TAB TABLET PO SCH ×3 (09:00→17:04)
[2017-09-17] MEDS: POLYETHYLENE GLYCOL 3350 119 GM BTL PO SCH (09:03)
[2017-09-17] MEDS: TRIAMCINOLONE ACETONIDE 15 APPL TUBE TP SCH ×2 (09:03→20:54)
[2017-09-17] MEDS ORDERED: traMADol HCL 50 MG TABLET PO PRN (09:28)
[2017-09-17] MEDS ORDERED: SENNOSIDES/DOCUSATE SODIUM 1 TAB TABLET PO PRN (09:30)
[2017-09-17] MEDS: oxyCODONE HCL/ACETAMINOPHEN 1 TAB TABLET PO PRN ×2 (10:15→21:33)
[2017-09-17] MEDS: SENNOSIDES/DOCUSATE SODIUM 1 TAB TABLET PO SCH ×2 (10:17→21:35)
--- NOTE | 2017-09-17 12:57 | PN ---
Subjective - Date and Time Seen Date: 09/17/17 Time: 08:50 Subjective Narrative: Patient seen and examined at bedside this AM. She had surgery last night around 6:30PM and states she did not get back to her room until 8pm or after. She states that she thinks she only slept for about 30 minutes last night secondary to severe toe pain. Objective - Review of Systems Generalized/Overall Review: Reports: Weakness - generalized, Fatigue EENTM: Reports: No Symptoms Reported Respiratory: Reports: No Symptoms Reported Cardiac: Reports: No Symptoms Reported Abdominal: Reports: No Symptoms Reported Genitourinary Symptoms: Reports: No Symptoms Reported Musculoskeletal Complaints: Reports: Joint Pain - left 3rd toe pain Neurological: Reports: Weakness - generalized Endocrine: Reports: No Symptoms Reported Misc: All systems neg except as marked - Vitals Vitals: Last Vital Signs Temp 36.2 C L 09/17/17 10:25 Pulse 80 09/17/17 10:25 Resp 18 09/17/17 10:25 BP 132/67 09/17/17 10:25 Pulse Ox 96 09/17/17 10:25 - Exam Constitutional: Present: Alert, Oriented x3, Cooperative, Well developed, Well nourished, Mild distress - appears uncomfortable secondary to pain, Elderly, Obese ENT Exam: Present: hearing grossly normal, moist mucous membranes Respiratory: Present: lungs clear, normal breath sounds, no respiratory distress , no accessory muscle use Cardiovascular/Chest: Present: no edema, edema - irregular rhythm, regular rate Abdomen: Present: soft, nontender, nondistended, hypoactive Extremity: Present: other - left third toe with dressing in place and foot in boot Neurologic: Present: alert, normal mood/affect, oriented x 3 Appearance: Present: appropriate appearance, appropriate insight, neat, no memory impairment Eye contact: Present: cooperative, good eye contact, normal speech Thoughts: Present: normal thought pattern, no apparent hallucination Assessment/Plan Plan Narrative: IMPRESSION & PLAN: Left 3rd Toe Cellulitis with displaced fractures of the distal phalanx -Admit to Med-Surg, Inpatient status. Patient failed outpatient therapy. She was started on Cefadroxil by Dr. Martinez on Saturday, . Per patient, despite oral antibiotics the redness, swelling and pain continued to progressively get worse. -Cefadroxil discontinued on admission -Discontinue IV Vancomycin and Zosyn and transition to oral Bactrim DS BID X 10 days. -Patient had an x-ray taken in Dr. Gallegos's office on 09/09/2017 and per patient and Dr. Gallegos, there were no acute fractures. Unfortunately, I do not have these images or report for review. Thus, I repeated x-rays on 2016 which showed: Diffuse soft tissue swelling involving the third toe, dorsal displacement of Bone fragments which are anterior to the proximal aspect of the distal phalanx. This may reflect a displaced fracture, but bony destruction/ osteomalacia cannot be totally excluded. -Left lower extremity non-joint MRI with and without contrast on 09/13/2017 showed: Dorsally displaced bone fragment, which I believe originates from the proximal medial aspect of the distal phalanx of the third toe. There is abnormal signal within the distal phalanx and middle phalanx of the third toe, concerning for osteomyelitis. -Blood cultures X 2 ordered on admission preliminary NGTD -S/P left third toe I&D with bone fragment removal by Dr. Ordoñez on 09/16/2017 -Adjust medications in an attempt to acheive better pain control. Start Percocet 5/325mg Q4H PRN severe pain, Tramadol 100mg PO Q6H PRN moderate pain, Tramadol 50mg PO Q4H PRN mild pain. Probable Gout -Patient denies ever having a history of gout in the past. However, exam is concerning for a possible acute gout flare with visible tophi under the skin. -Uric acid on admission 7.0. However, in an acute gout flare it is quite common to have a normal uric acid level. -Patient given 1.8mg of colchicine on 09/14/2017 (0.6mg TID) and now is on 0.6mg PO daily -Start allopurinol 200mg daily. Continue colchicine 0.6mg daily to hopefully avoid precipitation of another acute gout flare. -I discussed the patient's case with our lab and with our pathologist, Dr. Morgan, and they are trying to figure out the best way to go about making sure a crystal analysis is completed on the surgical specimen. Await results. CHRONIC STABLE MEDICAL CONDITIONS: Peripheral Neuropathy: Continue home medications Cymbalta, gabapentin Hyperlipidemia: Continue home medications atorvastatin, fish oil Familial Tremor: Continue home carbidopa-levodopa Depression and Anxiety: Continue home medications Xanax, Cymbalta Vitamin D deficiency: Continue home vitamin D supplementation Chronic Constipation: Continue Senna-S as needed VTE ppx: Lovenox, SCDs. Disposition: Continue to work on pain control and work with PT to insure patient will be safe to return home. Possible discharge tomorrow (09/18/2017). - Problems/Diagnosis (1) Cellulitis of third toe of left foot Problem: Acute (2) Fracture of third toe, left, closed Problem: Acute (3) Acute gout involving toe of left foot Problem: Suspected Qualifiers: Gout etiology: unspecified cause Qualified Code(s): M10.9 - Gout, unspecified (4) Peripheral neuropathy Problem: Chronic (5) Peripheral neuropathic pain Problem: Chronic (6) Hyperlipidemia Problem: Chronic (7) Benign familial tremor Problem: Chronic (8) Anxiety and depression Problem: Chronic (9) Vitamin D deficiency Problem: Chronic (10) Chronic constipation Problem: Chronic
[2017-09-17] MEDS: ALLOPURINOL 100 MG TABLET PO SCH (13:22)
--- NOTE | 2017-09-17 16:00 | PN ---
Subjective - Date and Time Seen Date: 09/17/17 Time: 07:45 Subjective Narrative: Pt evaluated at bedside. States she has a significant amount of pain in her left 3rd toe following surgery yesterday and did not sleep well last evening. She has taken norco with some relief, but not total relief. She has questions about her d/c home today and is concerned with her pain not being controlled. She lives alone so she will have to do all of her care on her own. Objective - Review of Systems Musculoskeletal Complaints: Reports: Gout, Other - left 3rd toe pain - Vitals Vitals: Last Vital Signs Temp 36.4 C L 09/17/17 15:03 Pulse 78 09/17/17 15:03 Resp 18 09/17/17 15:03 BP 103/51 09/17/17 15:03 Pulse Ox 97 09/17/17 15:03 - Abnormal Lab Findings Abnormal Lab Findings: Abnormal Lab Results 09/17/17 Range/Units 12:15 Synovial Crystals Calc.pyro. crystals H (NO CRYSTALS) - Exam Constitutional: Present: Alert, Oriented x3, Cooperative Extremity: Present: other - Tenderness to left 3rd toe. CRFT brisk to all toes left foot. Skin Exam: Present: other - Dressing to left foot CDI with minimal bloody drainage following surgery. Incision over dorsal left 3rd toe well approximated with sutures intact. Bloody drainage remains present. Toe with some localized swelling and mild erythema - improved following surgery. Appearance: Present: appropriate appearance Assessment/Plan - Problems/Diagnosis (1) Cellulitis of third toe of left foot Problem: Acute Narrative: Continue IV ABX at this time. Await bone culture results to adjust as needed. Will likely need minimum 1 week of oral ABX upon d/c home. (2) Acute gout involving toe of left foot Problem: Acute Qualifiers: Gout etiology: unspecified cause Qualified Code(s): M10.9 - Gout, unspecified Narrative: Discussed with pt surgical findings and highly likely diagnosis of gout in her toe. Will be placed on gout medications per PCP upon d/c home. I believe the patient should stay one more night to get post-surgical pain under more control as it is very poorly controlled with current mediation. Order written to give Percocet if needed for moderate-severe pain. New dressing applied to the surgical foot. Will keep CDI. Will plan dressing change prior to d/c tomorrow if pain well controlled at that time. May elevate her foot as needed to reduce swelling. Continue weight bearing in surgical shoe.
[2017-09-17] MEDS: ENOXAPARIN SODIUM 40 MG/0.4 ML SYRG SC SCH (17:04)
[2017-09-17] MEDS: ROSUVASTATIN CALCIUM 10 MG TABLET PO SCH (21:33)
[2017-09-17] MEDS: SULFAMETHOXAZOLE/TRIMETHOPRIM 1 TAB TABLET PO SCH (21:33)
[2017-09-18 05:40] LABS: Hematocrit 36.6 % (37.0-47.0); Hemoglobin 11.7 gm/dL (12.5-16.0); Mean Cell Volume 99.5 fl (78-100); Mean Corpuscular Hemoglobin 31.8 pg (27-31); Mean Platelet Volume 9.4 fl (6.0-9.5); Neutrophil % 49.7 % (42-75.0); Platelet Count 171 K/mm3 (150-450); Red Blood Count 3.68 M/mm3 (4.2-5.4); Red Cell Distribution Width 12.7 % (11.5-14.0)
[2017-09-18 06:07] LABS: Anion Gap 10.4 mmol/L (6.8-13.8); BUN/Creatinine Ratio 19.4 (9.0-21.6); Calcium * 9.1 mg/dL (7.9-10.9); Carbon Dioxide 33.1 mmol/L (24-32.6); Estimated Creat Clear 38.9; Potassium 4.5 mmol/L (3.4-4.6)
[2017-09-18] MEDS: GABAPENTIN 400 MG CAPSULE PO SCH (06:31)
--- NOTE | 2017-09-18 09:03 | DS ---
(1) Cellulitis of third toe of left foot Problem: Acute (2) Fracture of third toe, left, closed Problem: Acute (3) Acute gout involving toe of left foot Problem: Acute Qualifiers: Gout etiology: unspecified cause Qualified Code(s): M10.9 - Gout, unspecified (4) Peripheral neuropathy Problem: Chronic (5) Peripheral neuropathic pain Problem: Chronic (6) Hyperlipidemia Problem: Chronic (7) Benign familial tremor Problem: Chronic (8) Anxiety and depression Problem: Chronic (9) Vitamin D deficiency Problem: Chronic (10) Chronic constipation Problem: Chronic Description of Stay: ADMISSION DATE: 09/12/2017 DISCHARGE DATE: 09/18/2017 ADMISSION HPI: The patient is a 77-year-old female who presented to my outpatient clinic today for routine follow-up but had acute sick visit complaints of cellulitis of her left third toe. The patient states that on 09/08/2017, she stubbed her left third toe. She states that it gradually started to become more painful, swollen and red in color. She saw senior data mining analyst, Dr. Gallegos, on Saturday, 2016 at which time she was diagnosed with cellulitis and started on Cefadroxil 500mg PO TID X 10 days. The patient also states that she had x-rays of her toe completed and Dr. Gallegos's office. Unfortunately, I do not have these results to review but per the patient there were no fractures. The patient has been compliant with taking all doses of her prescribed antibiotic; however, her toe continues to worsen both in appearance and symptoms. PROBLEM BASED HOSPITAL COURSE: Left 3rd Toe Cellulitis with displaced fractures of the distal phalanx -Patient admitted to Med-Surg, Inpatient status from the clinic on 2016. Patient failed outpatient therapy with oral antibiotics. She was started on Cefadroxil by Dr. Martinez on Saturday, . Per patient, despite oral antibiotics the redness, swelling and pain continued to progressively get worse. -Cefadroxil discontinued on admission -Patient treated with IV Vancomycin and Zosyn from admission until 2016 at which time she was transitioned to oral Bactrim DS BID X 10 days. -Patient had an x-ray taken in Dr. Gallegos's office on 09/09/2017 and per patient and Dr. Gallegos, there were no acute fractures. Unfortunately, I do not have these images or report for review. Thus, I repeated x-rays on 2016 which showed: Diffuse soft tissue swelling involving the third toe, dorsal displacement of Bone fragments which are anterior to the proximal aspect of the distal phalanx. This may reflect a displaced fracture, but bony destruction/ osteomalacia cannot be totally excluded. -Left lower extremity non-joint MRI with and without contrast on 09/13/2017 showed: Dorsally displaced bone fragment, which I believe originates from the proximal medial aspect of the distal phalanx of the third toe. There is abnormal signal within the distal phalanx and middle phalanx of the third toe, concerning for osteomyelitis. -Blood cultures X 2 ordered on admission and NGTD -S/P left third toe I&D with bone fragment removal by Dr. Ordoñez on 09/16/2017 -Adjusted medications in an attempt to acheive better pain control. Start Percocet 5/325mg Q4H PRN severe pain, Tramadol 100mg PO Q6H PRN moderate pain, Tramadol 50mg PO Q4H PRN mild pain. Pain adequately controlled at the time of discharge Gout -Patient denies ever having a history of gout in the past. However, exam is concerning for a possible acute gout flare with visible tophi under the skin. -Uric acid on admission 7.0. However, in an acute gout flare it is quite common to have a normal uric acid level. -Patient given 1.8mg of colchicine on 09/14/2017 (0.6mg TID) and now is on 0.6mg PO daily -Allopurinol 200mg daily started on 09/17/2017. Continue colchicine 0.6mg daily to hopefully avoid precipitation of another acute gout flare. I will likely continue the patient on colchicine for 1-2 months and then discontinue cochicine and keep the patient on allopurinol. -Surgical specimen crystal analysis positive and packed with gout crystals CHRONIC STABLE MEDICAL CONDITIONS: Peripheral Neuropathy: Continue home medications Cymbalta, gabapentin Hyperlipidemia: Continue home medications atorvastatin, fish oil Familial Tremor: Continue home carbidopa-levodopa Depression and Anxiety: Continue home medications Xanax, Cymbalta Vitamin D deficiency: Continue home vitamin D supplementation Chronic Constipation: Continue Senna-S as needed VTE ppx: Patient reated with Lovenox and SCDs during her admission. Disposition: Patient discharged home in stable condition. [facility] with RN, aide and PT/OT ordered. FOLLOW-UP APPOINTMENTS: -[employer] Liquor Attendant, Dr. Ordoñez, on 09/20/2017 @ 10:45AM -PCP, Dr. Murcia, on 09/20/2017 @ 11:15AM NEW OR CHANGED MEDICATIONS: -Colchicine 0.6mg PO daily -Allopurinol 200mg PO daily -Oxycodone-APAP 5-325mg 1 tab Q4H PRN severe pain (patient given a written prescription for #25 with no refills) -Probiotic PO BID X 25 days and then stop -Bactrim DS PO BID X 10 days -Senna-S 1 tab PO with every pain pill DISCONTINUED MEDICATIONS: None RADIOLOGY REPORTS: Left third toe x-rays on 09/13/2017 showed: Diffuse soft tissue swelling involving the third toe, dorsal displacement of bone fragments which are anterior to the proximal aspect of the distal phalanx. This may reflect a displaced fracture, but bony destruction/osteomalacia cannot be totally excluded. Left lower extremity non-joint MRI with and without contrast on 09/13/2017 showed: Dorsally displaced bone fragment, which I believe originates from the proximal medial aspect of the distal phalanx of the third toe. There is abnormal signal within the distal phalanx and middle phalanx of the third toe, concerning for osteomyelitis. Procedures Performed: see notes below List Procedures: I&D left third toe with excision of infected tissue and bone by [employer] Attendant, Dr. Silvana Ordoñez, on 09/16/2017 Results and Findings: Laboratory Tests 09/12/17 09/12/17 09/15/17 14:50 14:50 05:30 Uric Acid 7.0 Procalcitonin Less than 0.05 L Synovial Crystals Lead <1 Lead Comment Venous 09/17/17 12:15 Uric Acid Procalcitonin Synovial Crystals Uric acid crystals H Lead Lead Comment Discharge Disposition: Home self care Disposition: Home self-care Condition: Stable Discharge Activity: Activity as tolerated - weight bearing as tolerated in surgical shoe Discharge Diet: General/regular food, Resume usual diet Referrals: Lou Murcia DO [Primary Care Provider] - Problem Oriented Discharge Instructions to Patient/Family: How to Change Your Dressing, Wound Infection, [id number], Surgical Site Infections FAQs - SMITH, Stitches, Stanley, or Adhesive Wound Closure, [id number] Additional Patient Instructions (free text): Please make TCM appointment at discharge, if applicable. Thank you! Jazmine @ [phone]. -Follow-up with Dr. Ordoñez on 09/20/2017 @ 10:45AM -Follow-up with PCP, Dr. Murcia, on 09/20/2017 @ 11:15AM -[facility] at discharge - RN, ritchie, PT/OT Prescriptions (Any new or edited meds): Allopurinol [Zyloprim] 200 mg PO DAILY #60 tablet Colchicine 0.6 mg PO DAILY #30 tablet oxyCODONE HCL/ACETAMINOPHEN [Percocet 5 MG/325 MG] 1 tab PO Q4H PRN #25 tablet PRN Reason: Severe Pain Saccharomyces Boulardii [Florastor] 250 mg PO BID #50 capsule Sennosides/Docusate Sodium [Senokot-S] 1 tab PO Q4H PRN #180 tablet PRN Reason: Constipation Sulfamethoxazole/Trimethoprim [Bactrim Ds] 1 tab PO BID #20 tablet Complete Home Medications List: Complete Home Medication List: ALPRAZolam [Xanax] 0.5 mg PO TID PRN 03/13/13 Carbidopa/Levodopa 25/250 [Sinemet 25/250] 1 tab PO TID 03/13/13 [place]-3 Fatty Acids/Fish Oil [Fish Oil 1,000 mg Capsule] 1 each PO BID 08/06/13 Acetaminophen [Tylenol] 650 mg PO Q4H PRN MDD 3000mg 09/12/17 Aspirin [Aspir-Low] 81 mg PO DAILY 09/12/17 Atorvastatin Calcium 20 mg PO HS 09/12/17 Cholecalciferol (Vitamin D3) [Vitamin D3] 2,000 unit PO DAILY 09/12/17 Duloxetine HCl [Cymbalta] 90 mg PO DAILY 09/12/17 Gabapentin 800 mg PO TID 09/12/17 Sennosides [Senna Lax] 8.6 mg PO TID PRN 09/12/17 Triamcinolone Acetonide [Kenalog 0.1%] 1 appl TP BID 09/12/17 traMADol HCL [Tramadol HCl] 50 mg PO Q4H PRN 09/12/17 Allopurinol [Zyloprim] 200 mg PO DAILY #60 tablet 09/18/17 Colchicine 0.6 mg PO DAILY #30 tablet 09/18/17 Saccharomyces Boulardii [Florastor] 250 mg PO BID #50 capsule 09/18/17 Sennosides/Docusate Sodium [Senokot-S] 1 tab PO Q4H PRN #180 tablet 09/18/17 Sulfamethoxazole/Trimethoprim [Bactrim Ds] 1 tab PO BID #20 tablet 09/18/17 oxyCODONE HCL/ACETAMINOPHEN [Percocet 5 MG/325 MG] 1 tab PO Q4H PRN #25 tablet 09/18/17
[2017-09-18] MEDS: ALPRAZolam 0.5 MG TABLET PO PRN (09:21)
[2017-09-18] MEDS: DULoxetine HCL 30 MG CAPSULE.SA PO SCH (09:22)
[2017-09-18] MEDS: CHOLECALCIFEROL 1,000 UNIT CAPSULE PO SCH (09:22)
[2017-09-18] MEDS: SACCHAROMYCES BOULARDII 250 MG CAPSULE PO SCH (09:22)
[2017-09-18] MEDS: ASPIRIN 81 MG TABLET.DR PO SCH (09:22)
[2017-09-18] MEDS: COLCHICINE 0.6 MG TABLET PO SCH (09:22)
[2017-09-18] MEDS: POLYETHYLENE GLYCOL 3350 119 GM BTL PO SCH (09:23)
[2017-09-18] MEDS: SULFAMETHOXAZOLE/TRIMETHOPRIM 1 TAB TABLET PO SCH (09:23)
[2017-09-18] MEDS: CARBIDOPA/LEVODOPA 25/250 1 TAB TABLET PO SCH (09:23)
[2017-09-18] MEDS: OMEGA-3 FATTY ACIDS 1 CAP CAPSULE PO SCH (09:23)
[2017-09-18] MEDS: ALLOPURINOL 100 MG TABLET PO SCH (09:24)
[2017-09-18] MEDS: TRIAMCINOLONE ACETONIDE 15 APPL TUBE TP SCH (09:24)
[2017-09-18 11:00] VITALS: BP 166/81
--- NOTE | 2017-09-18 13:11 | PN ---
Subjective - Date and Time Seen Date: 09/18/17 Time: 08:00 Subjective Narrative: Pt evaluated at bedside. States her pain has improved and is being well controlled on current medications. Is ready to go home today. Has questions on dressing changes for her surgical foot. Objective - Vitals Vitals: Last Vital Signs Temp 36.6 C 09/18/17 10:59 Pulse 104 H 09/18/17 10:59 Resp 18 09/18/17 10:59 BP 166/81 09/18/17 10:59 Pulse Ox 95 09/18/17 10:59 - Abnormal Lab Findings Abnormal Lab Findings: Abnormal Lab Results 09/17/17 09/18/17 09/18/17 Range/Units 12:15 05:29 05:29 RBC 3.68 L (4.2-5.4) M/mm3 Hgb 11.7 L (12.5-16.0) gm/dL Hct 36.6 L (37.0-47.0) % MCH 31.8 H (27-31) pg Monocytes % 12.9 H (0.0-9) % Eosinophils % 5.4 H (0.0-3.0) % Carbon Dioxide 33.1 H (24-32.6) mmol/L Est GFR (Non-Af Amer) 53 L (60-130) mL/min Synovial Crystals Uric acid crystals H (NO CRYSTALS) Assessment/Plan - Problems/Diagnosis (1) Cellulitis of third toe of left foot Problem: Acute (2) Acute gout involving toe of left foot Problem: Acute Qualifiers: Gout etiology: unspecified cause Qualified Code(s): M10.9 - Gout, unspecified
== END 2017-09-18 13:10 | disposition home health service (06) | DRG 505 ==
LOC: MS 14:28
PROVIDERS: ADMIT Internal Medicine; ATTEND Internal Medicine
PROC: 0SBQ0ZZ Excision of Left Toe Phalangeal Joint, Open Approach (ICD-10-PCS; principal; 2017-09-16 16:00)
DX: S92.532A Displaced fracture of distal phalanx of left lesser toe(s), initial encounter for closed fracture (principal); W18.40XA Slipping, tripping and stumbling without falling, unspecified, initial encounter; Y92.9 Unspecified place or not applicable; L03.032 Cellulitis of left toe; M10.9 Gout, unspecified; M1A.9XX1 Chronic gout, unspecified, with tophus (tophi); E78.5 Hyperlipidemia, unspecified; G62.9 Polyneuropathy, unspecified; G25.0 Essential tremor; E55.9 Vitamin D deficiency, unspecified; F41.8 Other specified anxiety disorders; K59.09 Other constipation; Z23 Encounter for immunization
CPT/HCPCS: 28054; 36415; 73660; 73720; 80048; 80202; 83655; 84145; 84550; 85025; 87040; 87070; 88305; 88311; 89060; 90686; 97116; 97161; 97530; G0008